=== PATIENT | male | born 1950 | race Caucasian/White ===

== ENCOUNTER 2020-07-04 09:21 | Emergency (ER) | payer MEDICARE ==
[2020-07-04] MEDS ORDERED: Bupivacaine 0.5% 30 ML SDV INJECT PRN (09:55)
[2020-07-04] MEDS: Lidocaine 1% 30 ML SDV INJECT ONE (10:30)
[2020-07-04] MEDS: Bupivacaine 0.5% 30 ML SDV INJECT STA (10:30)
--- NOTE | 2020-07-04 10:57 | CR ---
[id number] RAD/RAD Foot Right 3V Min Exam: RAD Foot Right 3V Min Indication:CHAIN SAW TO THE TOES Comparison: No prior imaging for comparison. Discussion: Hammertoe deformity of the second through fourth digits. No evidence of an acute fracture or dislocation. No AVN or erosive changes. Osteoarthritis throughout the foot. Achilles tendon and plantar fascia enthesopathy at their calcaneal attachments. Impression: As above. Tanvir Hearn MD 07/04/20 1056 Thank you for allowing us to participate in the care of your patient.
--- NOTE | 2020-07-04 11:36 | EDM.PDOC ---
ED HPI GENERAL MEDICAL PROBLEM - General Chief Complaint: Lower Extremity Injury/Pain Stated Complaint: ER Time Seen by Provider: 07/04/20 09:45 Source of Information: Reports: Patient History Limitations: Reports: No Limitations - History of Present Illness INITIAL COMMENTS - FREE TEXT/NARRATIVE: Patient comes emergency department today with complaints of an injury to his right foot. There is prior to arrival the patient was working with a chainsaw that was running when he was cutting a tree he dropped landing on his right foot. This happened just prior to arrival. He sustained some lacerations to the dorsum distal aspect of his right foot on the second and third toes. He is unsure of when his last tetanus shot was. He has no change in the function or the sensation of his foot. And right from the site of the injury to the emergency department. [place] any paresthesias. He denies any other injury to his right foot. He is able to ambulate without difficulty. Right Foot Pain Score (Numeric/FACES): 3 - Related Data Allergies Allergy/AdvReac Type Severity Reaction Status Date / Time No Known Allergies Allergy Verified 07/04/20 09:26 Home Meds: Home Meds Amoxicillin/Clavulanate K [Augmentin 875-125 MG] 1 tab PO BID #14 tablet 07/04/20 [Rx] Past Medical History - Past Health History Medical/Surgical History: Denies Medical/Surgical History Social & Family History - Tobacco Use Smoking Status *Q: Unknown Ever Smoked Review of Systems - Review of Systems Review Of Systems: Comprehensive ROS is negative, except as noted in HPI. ED EXAM, GENERAL - Physical Exam Exam: See Below Exam Limited By: No Limitations General Appearance: Alert, WD/WN, No Apparent Distress Respiratory/Chest: No Respiratory Distress Cardiovascular: Normal Peripheral Pulses, Regular Rate, Rhythm Peripheral Pulses: 2+: Posterior Tibial (L), Posterior Tibial (R), Dorsalis Pedis (L), Dorsalis Pedis (R) Extremities: No: Normal Inspection (Examination is pretty much isolated to the right foot. On the dorsum of the right foot just on the distal second metatar rachele there is a distal to proximal very superficial 2 cm laceration that is barely into the subcutaneous tissue. There is no bony deformity. On the lateral aspect of the second toe starting at the mid phalange he and extending on the lateral aspect down to the base of the phalange he there is a 3.2 flap- like laceration into the subcutaneous tissue. There is no foreign material or debris. On the third toe on the lateral aspect almost the entirety of the length of the toe to the base there is a full-thickness laceration that is extended down to the periosteum. Does not go into the joint. There is no foreign material or debris this is a very clean open laceration. Patient is able to flex and extend appropriately at the DIP PIP and MTP joints of all the toes of the right foot. CMS is intact appropriately. The rest of the foot is atraumatic.) Course - Vital Signs Last Recorded V/S: Last Vital Signs Temp 97.5 F 07/04/20 09:21 Pulse 76 07/04/20 09:21 Resp 18 07/04/20 09:21 BP 179/100 H 07/04/20 09:21 Pulse Ox 97 07/04/20 09:21 - Orders/Labs/Meds Meds: Medications Discontinued Medications Generic Name Dose Route Start Last Admin Trade Name Freq PRN Reason Stop Dose Admin Amoxicillin/Clavulanate Potassium 1 tab 07/04/20 11:28 07/04/20 11:44 Augmentin 875 Mg/125 Mg PO 07/04/20 11:29 1 tab ONETIME ONE Administration Bupivacaine HCl 30 ml 07/04/20 09:55 Marcaine 0.5% INJECT ASDIRECTED PRN Other Bupivacaine HCl 30 ml 07/04/20 10:03 07/04/20 10:30 Marcaine 0.5% INJECT 07/04/20 10:04 30 ml NOW STA Administration Diphtheria/Tetanus/Acell Pertussis 0.5 ml 07/04/20 09:56 07/04/20 11:43 Adacel IM 07/04/20 09:57 0.5 ml .ONCE ONE Administration Lidocaine HCl 30 ml 07/04/20 09:55 07/04/20 10:30 Xylocaine-Mpf 1% INJECT 07/04/20 09:56 30 ml ONETIME ONE Administration - Radiology Interpretation Free Text/Narrative:: X-ray of the right foot per radiology shows no evidence of acute fracture or dislocation. No AVN or erosive changes. Osteoarthritis throughout the foot. - Re-Assessments/Exams Free Text/Narrative Re-Assessment/Exam: 07/04/20 13:14 Initially the wound was cleansed with chlorhexidine and sterile water. Then 1% lidocaine without epinephrine and 0.5% bupivacaine without epinephrine was mixed in a 50-50 fashion. The lacerations were injected throughout their entirety with this above mixture and allowed appropriate time for anesthesia to set in. For the next 20 minutes the foot was soaked in warm water with chlorhexidine. I then turned my attention to exploring the wounds. The superficial laceration on the second dorsal metatarsal is very superficial with no foreign debris. Similarly on the second toe it was rinsed with approximately 200 mils of sterile saline with chlorhexidine solution. I explored the wound to the base and there was no foreign material or evidence of tendon laceration and it does not extend past the subcutaneous tissue. I then turned my attention to the third toe which is more gaping and open. This was also cleansed with 200 mils of sterile saline as well as chlorhexidine solution. There is no foreign material debris. There is no evidence of tendon injury. It does extend very minimally down to the bone of the proximal phalange he does not extend into the joint this is a very small aspect. There is no evidence of tendon injury. The 2 cm superficial laceration on the second distal metatarsal was closed with 5-0 Ethilon sutures single interrupted fashion with good skin approximation. The rest of the lacerations to include the 4 cm laceration on the third toe and the 3.2 cm laceration on the second toe were closed with 5-0 Ethilon single interrupted sutures with good skin approximation. These lacerations were more complex and multiple flaps were aligned and it took quite a bit of time to obtain good wound approximation but I was able to successfully do so. He was able to flex and extend appropriately and his CMS was intact appropriately following the application of the sutures. This is a laceration that was caused from a dirty tool as well as in a shoe or boot I will place him on Augmentin for prophylactic antibiotics. If he has any signs of infection he should follow-up with podiatry otherwise sutures out in 10 days. Discharge directions as below are explained to the patient. He was comfortable with this plan his questions are answered. Departure - Departure Time of Disposition: 11:31 Disposition: Home, Self-Care 01 Clinical Impression: Contact with chainsaw as cause of accidental injury Laceration of foot Qualifiers: Encounter type: initial encounter Laterality: right Qualified Code(s): S91.311A - Laceration without foreign body, right foot, initial encounter - Discharge Information Prescriptions: Amoxicillin/Clavulanate K [Augmentin 875-125 MG] 1 tab PO BID #14 tablet Instructions: Sutures, Cookson, or Adhesive Wound Closure, [id number], Sutured Wound Care, [id number] Referrals: PCP,None [Primary Care Provider] - Forms: ED Department Discharge Additional Instructions: Cleanse wound twice daily with soap and water. Bacitracin and bandage until healed. Watch for infection. Augmentin, 1 tablet twice daily for the next 7 days. RX to [facility]. Sutures out in 10 days in the clinic. Decrease activity with the food over the next 2-3 days. Return to the ED if new or worsening symptoms. Follow up with PCP in the next 10 days for suture removal sooner if concerns or issues. Sepsis Event Note (ED) - Evaluation Sepsis Screening Result: No Definite Risk - Focused Exam Vital Signs: Vital Signs Temp Pulse Resp BP Pulse Ox 07/04/20 09:21 97.5 F 76 18 179/100 H 97
[2020-07-04] MEDS: Diphtheria,Pertussis(Acell),Tetanus Vaccine 0.5 ML Syringe IM ONE (11:43)
[2020-07-04] MEDS: Amoxicillin/Clavulanate K 875-125 MG Tab PO ONE (11:44)
== END 2020-07-04 11:53 | disposition home or self-care (01) ==
LOC: VM.ED 09:21
DX: S91.311A Laceration without foreign body, right foot, initial encounter (principal); S91.114A Laceration without foreign body of right lesser toe(s) without damage to nail, initial encounter; Z23 Encounter for immunization; W29.3XXA Contact with powered garden and outdoor hand tools and machinery, initial encounter
CPT/HCPCS: 12002; 12004; 73630-RT; 90471; 90715; 99283-25; 99284; A9270-GY; J2001; J3490

== ENCOUNTER 2024-05-31 17:18 | Emergency (ER) | payer MEDICARE | END 2024-05-31 18:38 | disposition home or self-care (01) | LOC: VM.ED 17:18 | DX: R33.9 Retention of urine, unspecified (principal) | CPT/HCPCS: 51702; 99283 ==

== ENCOUNTER 2024-06-16 11:30 | Day surgery (SDC) | payer MEDICARE ==
[2024-06-16] MEDS: Lactated Ringers 1,000 ML IV SCH (11:57)
[2024-06-16] MEDS ORDERED: Propofol 200 MG/20 ML SDV ONE (12:20)
[2024-06-16] MEDS ORDERED: fentaNYL 100 MCG/2 ML SDV ONE (13:17)
== END 2024-06-16 15:38 | disposition home or self-care (01) ==
LOC: VM.SDS 11:30
PROVIDERS: ATTEND Family Medicine
DX: D12.6 Benign neoplasm of colon, unspecified (principal); D12.8 Benign neoplasm of rectum; K63.5 Polyp of colon; K57.30 Diverticulosis of large intestine without perforation or abscess without bleeding; R63.4 Abnormal weight loss; N18.4 Chronic kidney disease, stage 4 (severe); D63.1 Anemia in chronic kidney disease; N40.0 Benign prostatic hyperplasia without lower urinary tract symptoms
CPT/HCPCS: 00811; 45380; 45385; 88305; 99100; J2704; J3010; J7120

== ENCOUNTER 2024-06-30 10:21 | Emergency (ER) | payer MEDICARE ==
[2024-06-30 11:33] VITALS: BP 128/78; PULSE 71
== END 2024-06-30 11:10 | disposition home or self-care (01) ==
LOC: VM.ED 10:21
DX: T83.031A Leakage of indwelling urethral catheter, initial encounter (principal)
CPT/HCPCS: 51702; 99283

== ENCOUNTER 2024-08-17 08:35 | Emergency (ER) | payer MEDICARE, MEDICAID ==
[2024-08-17 09:19] LABS: APPEARANCE,URINE CLOUDY (CLEAR); BILIRUBIN,URINE NEGATIVE (NEGATIVE); COLOR,URINE YELLOW (YELLOW); GLUCOSE,URINE NEGATIVE (NEGATIVE); KETONES,URINE NEGATIVE (NEGATIVE); LEUKOCYTE ESTERASE,URINE LARGE (NEGATIVE); NITRITE,URINE NEGATIVE (NEGATIVE); OCCULT BLOOD,URINE LARGE (NEGATIVE); PROTEIN,URINE >=300 mg/dL (NEGATIVE); UROBILINOGEN,URINE 0.2 EU/dL (0.2)
[2024-08-17 09:29] LABS: BACTERIA,URINE MODERATE /HPF (NOT SEEN); RBC,URINE PACKED /HPF (NOT SEEN); SQUAMOUS EPITHELIAL CELLS,UR FEW /HPF (NOT SEEN); WBC,URINE PACKED /HPF (NOT SEEN)
[2024-08-17 09:30] LABS: MUCUS,URINE NOT SEEN /LPF (NOT SEEN)
== END 2024-08-17 09:59 | disposition home or self-care (01) ==
LOC: VM.ED 08:35
DX: R33.9 Retention of urine, unspecified (principal); Z79.899 Other long term (current) drug therapy
CPT/HCPCS: 51702; 81001; 87086; 87088; 87186; 99284